=== PATIENT | male | born 1990 | race Caucasian/White ===

== ENCOUNTER 2019-04-07 08:16 | Observation (INO) | payer OTHER ==
[~2019-04-07] VITALS: Ht 185.4 cm; Wt 112.1 kg
[2019-04-07] MEDS ORDERED: NS 1,000 ML IV ONE ×2 (08:45→09:45)
[2019-04-07 09:04] LABS: BASO # 0.1 10^3/uL (0.0-0.2); BASO % 0.3 % (0.0-1.0); EOS # 0.1 10^3/uL (0.0-0.5); EOS % 0.9 % (0.0-3.0); HEMATOCRIT 49.3 % (42.0-52.0); HEMOGLOBIN 16.3 g/dl (13.5-17.5); LYMPH # 0.9 10^3/uL (1.5-5.0); LYMPH % 5.8 % (24.0-44.0); MEAN CORPUSCULAR HEMOGLOBIN 30.9 pg (27.0-33.0); MEAN CORPUSCULAR HGB CONC 33.1 g/dl (32.0-36.5); MEAN CORPUSCULAR VOLUME 93.4 fl (80.0-96.0); MONO # 0.9 10^3/uL (0.0-0.8); MONO % 5.4 % (0.0-5.0); PLATELET COUNT, AUTOMATED 238 10^3/uL (150-450); RED BLOOD COUNT 5.28 10^6/uL (4.30-6.10)
--- NOTE | 2019-04-07 09:09 | REP ---
Portable chest x-ray: Single view. History: Syncope/near syncope. Findings: Lungs are well inflated and clear. Pleural angles are sharp. Heart size is normal. Pulmonary vasculature is not increased. There is a mild levoconvex curvature in the upper thoracic spine. No other bony abnormality. Impression: No active disease. Electronically Signed by Mulugeta Valadez MD 04/07/2019 09:01 A
--- NOTE | 2019-04-07 10:20 | ECGEPIP ---
[facility] - ED Test Date: 2019-04-07 Pat Name: MINI LOVING Department: Room: - Gender: Male Car Porter: FIOR : 1990 Requested By: LAURA Thomason Order Number: [id number] Reading MD: Manda Hein Measurements Intervals [place] Rate: 112 P: 36 LA: 120 QRS: 23 QRSD: 113 T: 10 QT: 356 QTc: 488 Interpretive Statements SINUS TACHYCARDIA POSSIBLE LEFT ATRIAL ENLARGEMENT MODERATE INTRAVENTRICULAR CONDUCTION DELAY ABNORMAL RHYTHM ECG NSTTW abnormalities NO PRIOR Electronically Signed on 04-07-2019 10:19:50 EST by Manda Hein
[2019-04-07 10:35] LABS: BLOOD UREA NITROGEN 25 MG/DL (7-18); CALCIUM LEVEL 9.2 MG/DL (8.5-10.1); CARBON DIOXIDE LEVEL 20 MEQ/L (21-32); CHLORIDE LEVEL 110 MEQ/L (98-107); CREATININE FOR GFR 1.17 MG/DL (0.70-1.30); FREE T4 1.23 NG/DL (0.76-1.46); GLOMERULAR FILTRATION RATE > 60.0 (>60); GLUCOSE, FASTING 77 MG/DL (70-100); POTASSIUM SERUM 4.3 MEQ/L (3.5-5.1); SODIUM LEVEL 140 MEQ/L (136-145)
[2019-04-07 10:36] LABS: CPK CREATINE PHOSPHOKINASE 25680 U/L (39-308)
[2019-04-07 14:23] LABS: BLOOD UREA NITROGEN 22 MG/DL (7-18); CALCIUM LEVEL 8.1 MG/DL (8.5-10.1); CARBON DIOXIDE LEVEL 20 MEQ/L (21-32); CHLORIDE LEVEL 113 MEQ/L (98-107); CPK CREATINE PHOSPHOKINASE 26555 U/L (39-308); GLOMERULAR FILTRATION RATE > 60.0 (>60); GLUCOSE, FASTING 78 MG/DL (70-100); POTASSIUM SERUM 4.4 MEQ/L (3.5-5.1); SODIUM LEVEL 142 MEQ/L (136-145)
[2019-04-07] MEDS ORDERED: NS 500 ML IV ONE (14:30)
--- NOTE | 2019-04-07 15:35 | HPEPDOC ---
[facility] Medical History & Physical Date of Admission Apr 07, 2019 Date of Service: Apr 07, 2019 Attending Physician: EJ BARTON MD History and Physical CHIEF COMPLAINT: Presyncope while running HISTORY OF PRESENT ILLNESS: 28-year-old male in the , was running at a fast pace after a one-month break and became lightheaded/dizzy. Patient was on vacation for a month, inactive and gained weight, return to his duties this week with a routine run of 6 miles, last fluid intake was the night before, progressively became more fatigued/dyspneic/dizzy as he was running until he nearly passed out after the fourth mile walk. He was brought to the emergency department, received IV fluids, complete resolution of symptoms within 45 minutes, patient never lost consciousness. Patient found to have rhabdomyolysis on labs, will be admitted for observation and IV hydration. Patient denies any shortness of breath, chest pain, nausea, vomiting, dizziness, abdominal pain, diarrhea or constipation at this time. 10 point review of system is negative except for above PAST MEDICAL HISTORY: 1. None. PAST SURGICAL HISTORY: 1. None SOCIAL HISTORY: Never smoker. Social alcohol use Denies drug use FAMILY HISTORY: No family history of cancer, heart disease ALLERGIES: Please see below. HOME MEDICATIONS: Please see below. PHYSICAL EXAMINATION: VITAL SIGNS: Please see below. GENERAL: No distress HEENT: Normocephalic, atraumatic, moist mucous membranes NECK: Supple CARDIOVASCULAR EXAMINATION: S1, S2, no murmurs RESPIRATORY EXAMINATION: Clear to auscultation, no wheezing ABDOMINAL EXAMINATION: Soft, nontender, nondistended, positive bowel sounds EXTREMITIES: Range of motion intact SKIN: No rash NEUROLOGICAL EXAMINATION: Alert and oriented 3, no focal deficits PSYCHIATRIC EXAMINATION: Calm and cooperative LABORATORY DATA: See below. IMAGING: Chest x-ray without acute pathology MICROBIOLOGY: Please see below. ASSESSMENT: 28-year-old male went on a 6 mile run after being inactive for 1 month being admitted for rhabdomyolysis. PLAN: 1. Rhabdomyolysis. Status post 2 L normal saline bolus in the ED, continue LR at 150 mL per hour, will recheck labs in the morning. DVT prophylaxis: TEDs/SCDs. GI prophylaxis: Not needed Vital Signs Vital Signs Date Time Temp Pulse Resp B/P (MAP) Pulse Ox O2 Delivery O2 Flow Rate FiO2 04/07/19 15:02 106 18 148/63 (91) 96 Room Air 04/07/19 08:31 97.9 Laboratory Data Labs 24H Laboratory Tests 2 04/07/19 08:43: Immature Granulocyte % (Auto) 0.6, Neutrophils (%) (Auto) 87.0H, Lymphocytes (%) (Auto) 5.8L, Monocytes (%) (Auto) 5.4H, Eosinophils (%) (Auto) 0.9, Basophils (%) (Auto) 0.3, Neutrophils # (Auto) 14.0H, Lymphocytes # (Auto) 0.9L, Monocytes # (Auto) 0.9H, Eosinophils # (Auto) 0.1, Basophils # (Auto) 0.1, Nucleated Red Blood Cells % (auto) 0.0, Anion Gap 10, Glomerular Filtration Rate > 60.0, Lactic Acid Level 2.3*H, Calcium Level 9.2, Magnesium Level 2.0, Total Creatine Kinase 63068I, Thyroid Stimulating Hormone (TSH) 6.010H, Free Thyroxine 1.23 04/07/19 09:01: Bedside Glucose (Misc Panel) 79 04/07/19 12:31: Anion Gap 9, Glomerular Filtration Rate > 60.0, Calcium Level 8.1L, Total Creatine Kinase 28698U CBC/BMP Laboratory Tests 04/07/19 08:43 04/07/19 12:31 Home Medications No Active Prescriptions or Reported Meds Allergies Coded Allergies: No Known Allergies (Unverified , 04/07/19) A-FIB/CHADSVASC A-FIB History Current/History of A-Fib/PAF?: No EJ BARTON MD Apr 07, 2019 15:35
[2019-04-07] MEDS: LR 1,000 ML IV SCH ×2 (15:57→22:59)
[2019-04-07 19:55] VITALS: BP 122/72
[2019-04-08 06:23] VITALS: BP 117/64
[2019-04-08] MEDS: LR 1,000 ML IV SCH ×2 (06:23→14:16)
[2019-04-08 06:46] LABS: HEMATOCRIT 40.3 % (42.0-52.0); HEMOGLOBIN 13.6 g/dl (13.5-17.5); MEAN CORPUSCULAR HEMOGLOBIN 31.8 pg (27.0-33.0); MEAN CORPUSCULAR HGB CONC 33.7 g/dl (32.0-36.5); MEAN CORPUSCULAR VOLUME 94.2 fl (80.0-96.0); PLATELET COUNT, AUTOMATED 213 10^3/uL (150-450); RED BLOOD COUNT 4.28 10^6/uL (4.30-6.10); WHITE BLOOD COUNT 6.3 10^3/uL (4.0-10.0)
[2019-04-08 08:42] LABS: ALBUMIN 3.1 GM/DL (3.2-5.2); ALT/SGPT 168 U/L (12-78); BILIRUBIN,TOTAL 0.8 MG/DL (0.2-1.0); BLOOD UREA NITROGEN 13 MG/DL (7-18); CALCIUM LEVEL 8.1 MG/DL (8.5-10.1); CARBON DIOXIDE LEVEL 25 MEQ/L (21-32); CHLORIDE LEVEL 111 MEQ/L (98-107); CPK CREATINE PHOSPHOKINASE 24540 U/L (39-308); GLOMERULAR FILTRATION RATE > 60.0 (>60); GLUCOSE, FASTING 89 MG/DL (70-100); PHOSPHORUS LEVEL 2.8 MG/DL (2.5-4.9); POTASSIUM SERUM 3.9 MEQ/L (3.5-5.1); SODIUM LEVEL 140 MEQ/L (136-145); TOTAL PROTEIN 5.8 GM/DL (6.4-8.2)
[2019-04-08] MEDS ORDERED: NS 1,000 ML IV ONE (12:30)
[2019-04-08] MEDS ORDERED: NS 1,000 ML IV SCH (15:30)
[2019-04-08 16:45] LABS: ALBUMIN 3.5 GM/DL (3.2-5.2); ALT/SGPT 317 U/L (12-78); BILIRUBIN,TOTAL 0.4 MG/DL (0.2-1.0); BLOOD UREA NITROGEN 13 MG/DL (7-18); CALCIUM LEVEL 8.4 MG/DL (8.5-10.1); CARBON DIOXIDE LEVEL 28 MEQ/L (21-32); CHLORIDE LEVEL 110 MEQ/L (98-107); CREATININE FOR GFR 0.95 MG/DL (0.70-1.30); GLOMERULAR FILTRATION RATE > 60.0 (>60); GLUCOSE, FASTING 94 MG/DL (70-100); POTASSIUM SERUM 4.2 MEQ/L (3.5-5.1); SODIUM LEVEL 143 MEQ/L (136-145); TOTAL PROTEIN 6.3 GM/DL (6.4-8.2)
--- NOTE | 2019-04-08 17:32 | DS.PDOC ---
Discharge Summary General Date of Admission Apr 07, 2019 at 08:17 Date of Discharge 04/08/19 Attending Physician: EJ BARTON MD Discharge Summary PROCEDURES PERFORMED DURING STAY: None ADMITTING DIAGNOSES: 1. Rhabdomyolysis DISCHARGE DIAGNOSES: 1. Rhabdomyolysis, elevated LFTs COMPLICATIONS/CHIEF COMPLAINT: Rhabdomyolysis. HISTORY OF PRESENT ILLNESS: 28 y.o male w/ no significant PMH was admitted for Rhabdomyolysis due to running 4 miles at a fast pace after being sedentary for the past month. He was treated w/ aggressive IV hydration and CPK was trending down in the morning, repeat levels in the afternoon were trending up along with his LFTs. Plan was to provide more IV hydration & further workup to establish the etiology of elevated LFTs. Patient did not wish to stay in the hospital through today to continue treatment and workup. He is advised regarding the wo rsening of his labs and need for further aggressive IV hydration and monitoring renal/liver function. He understands the risks, with significant other at bedside and wishes to leave against medical advice. He has been 2L of IV fluids today, in addition to the maintenance fluids he was receiving. He has received a total of >6L of IV fluids since admission. He is currently asymptomatic with good urine output. He is advised to stay as hydrated as he can for the next few days and repeat blood work with his PCP within 3 days if possible. All of his & significant other's questions were answered, he was once again advised to stay but once again he declined and will be leaving AMA. HOSPITAL COURSE: As above DISCHARGE MEDICATIONS: Please see below. ALLERGIES: Please see below. PHYSICAL EXAMINATION: VITAL SIGNS: Please see below. GENERAL: No distress HEENT: Normocephalic, atraumatic, moist mucous membranes NECK: Supple CARDIOVASCULAR EXAMINATION: S1, S2, no murmurs RESPIRATORY EXAMINATION: Clear to auscultation, no wheezing ABDOMINAL EXAMINATION: Soft, nontender, nondistended, positive bowel sounds EXTREMITIES: Range of motion intact SKIN: No rash NEUROLOGICAL EXAMINATION: Alert and oriented 3, no focal deficits PSYCHIATRIC EXAMINATION: Calm and cooperative LABORATORY DATA: Please see below. DIET: Regular, encouraged focus on hydration DISCHARGE PLAN: f/u with PCP within 1 week DISPOSITION: AMA DISCHARGE INSTRUCTIONS: 1. As above TIME SPENT ON DISCHARGE: Greater than 25 minutes. Vital Signs/I&Os Vital Signs Date Time Temp Pulse Resp B/P (MAP) Pulse Ox O2 Delivery O2 Flow Rate FiO2 04/08/19 06:23 97.6 75 18 117/64 (81) 97 Room Air I&O- Last 24 Hours up to 6 AM 04/08/19 06:00 Intake Total 2800 ml Output Total 0 ml Balance 2800 ml Laboratory Data Labs 24H Laboratory Tests 2 04/08/19 06:26: Nucleated Red Blood Cells % (auto) 0.0, Anion Gap 4L, Glomerular Filtration Rate > 60.0, Calcium Level 8.1L, Phosphorus Level 2.8, Magnesium Level 2.0, Total Bilirubin 0.8, Aspartate Amino Transf (AST/SGOT) 566H, Alanine Aminotransferase (ALT/SGPT) 168H, Alkaline Phosphatase 40L, Total Creatine Kinase 18331Q, Total Protein 5.8L, Albumin 3.1L, Albumin/Globulin Ratio 1.15 04/08/19 13:35: Total Creatine Kinase 54693Y 04/08/19 16:03: Anion Gap 5L, Glomerular Filtration Rate > 60.0, Calcium Level 8.4L, Total Bilirubin 0.4, Aspartate Amino Transf (AST/SGOT) 764H, Alanine Aminotransferase (ALT/SGPT) 317H, Alkaline Phosphatase 46, Total Protein 6.3L, Albumin 3.5, Albumin/Globulin Ratio 1.25, Uric Acid 5.0 CBC/BMP Laboratory Tests 04/08/19 06:26 04/08/19 16:03 Discharge Medications No Active Prescriptions or Reported Meds Allergies Coded Allergies: No Known Allergies (Unverified , 04/07/19) EJ BARTON MD Apr 08, 2019 17:32
== END 2019-04-08 17:00 | disposition left against medical advice (07) ==
LOC: M ED 08:16 → M ED INP 08:17 → ENRESERV 15:39 → M MS4PR 19:46
PROVIDERS: ADMIT Internal Medicine; ATTEND Internal Medicine
DX: M62.82 Rhabdomyolysis (principal); R94.5 Abnormal results of liver function studies; E86.0 Dehydration